=== PATIENT | male | born 1955 | race Caucasian/White ===

== ENCOUNTER 2022-03-09 12:30 | Outpatient (REF) | payer MEDICARE, OTHER, SELFPAY ==
[2022-03-11 12:19] LABS: COVID-19 RT-PCR UVMMC Result Negative (Negative)
== END 2022-03-09 12:31 | disposition home or self-care (01) ==
LOC: LBN 12:30
PROVIDERS: Visit Provider Physician Assistant Medical
DX: Z20.822 Contact with and (suspected) exposure to COVID-19 (principal); J06.9 Acute upper respiratory infection, unspecified
CPT/HCPCS: U0003